=== PATIENT | female | born 1975 | race Two or more races ===

== ENCOUNTER 2022-05-06 05:40 | Day surgery (SDC) | payer OTHER ==
[2022-05-06] MEDS ORDERED: NEXIUM 24HR20 M1 PO (08:57)
== END 2022-05-06 10:25 | disposition home or self-care (01) ==
LOC: AMB-ENDOS 05:40
PROVIDERS: ATTEND Surgery
DX: K29.00 Acute gastritis without bleeding (principal); K44.9 Diaphragmatic hernia without obstruction or gangrene; E66.01 Morbid (severe) obesity due to excess calories; I10 Essential (primary) hypertension